=== PATIENT | male | born 1950 | race Caucasian/White ===

== ENCOUNTER → 2017-01-15 | Outpatient (CLI) | payer BC, OTHER ==
[~2017-01-15] MED LIST: ATOR10TA88 PO; BP MED; CLB/200 PO; DRV100 PO; HYDR-5688 PO; IBUP-1428 PO; PRLSR20 PO; TELM1TAB11 PO
== END | disposition home or self-care (01) ==
LOC: C.RDSM 12:04
PROVIDERS: ATTEND Orthopaedic Surgery Sports Medicine
DX: M79.645 Pain in left finger(s) (principal)

== ENCOUNTER → 2017-01-21 | Outpatient (CLI) | payer BC, OTHER ==
--- NOTE | 2017-01-21 11:15 | DIAGNOSTIC IMAGING REPORT ---
LUMBAR SPINE 5 VIEWS HISTORY: Pain M54.16 Lumbar [id number] COMPARISON: None. FINDINGS: There is no fracture. No subluxation. Moderate degenerative disc changes throughout. Mild degenerative sclerosis of the vertebral endplates. IMPRESSION: Moderate degenerative disc change. No acute process. Electronically signed by: Clive Engle M.D. 01/21/2017 11:13 AM Dictated Date/Time: 01/21/2017 11:12 AM
--- NOTE | 2017-01-21 11:16 | DIAGNOSTIC IMAGING REPORT ---
SI JOINTS 3 OR MORE VIEWS CLINICAL HISTORY: M46.1 [id number] COMPARISON STUDY: No previous studies for comparison. FINDINGS: No fractures are visualized. There is no evidence for SI joint fusion. There are no erosive changes to indicate an inflammatory sacroiliitis. Slight sclerosis involving the sacral aspect of the left SI joint is likely degenerative basis. IMPRESSION: Mild degenerative changes involving the left SI joint. No conventional radiographic evidence of an inflammatory sacroiliitis Electronically signed by: Andrea Varghese M.D. 01/21/2017 11:15 AM Dictated Date/Time: 01/21/2017 11:14 AM
== END | disposition home or self-care (01) ==
LOC: C.RAD1850 10:47
PROVIDERS: ATTEND Internal Medicine
DX: M46.1 Sacroiliitis, not elsewhere classified (principal); M54.16 Radiculopathy, lumbar region

== ENCOUNTER → 2017-01-31 | Outpatient (CLI) | payer BC, OTHER ==
[~2017-01-31] VITALS: Ht 173.4 cm; Wt 147.1 kg
[~2017-01-31] MED LIST changes: +ATOR10TA82 PO; -ATOR10TA88 PO
[2017-01-31 12:53] VITALS: BP 142/84; PULSE 85; Ht 173.4 cm; Wt 147.1 kg
== END | disposition home or self-care (01) ==
LOC: C.NEUR 12:31
PROVIDERS: ATTEND Internal Medicine Pulmonary Disease
DX: G47.30 Sleep apnea, unspecified (principal)

== ENCOUNTER → 2017-06-05 | Outpatient (CLI) | payer BC, OTHER ==
[~2017-06-05] MED LIST changes: -ATOR10TA82 PO; +ATOR10TA88 PO; -BP MED; -DRV100 PO
[2017-06-05 17:10] LABS: PROSTATE SPECIFIC ANTIGEN 1.11 ng/ml (0.000-4.000)
[2017-06-06 07:48] LABS: ESTIMATED AVERAGE GLUCOSE 105 mg/dl; HA1C FLAG Normal (Normal)
--- NOTE | 2017-07-07 13:07 | CODING QUERY MEDICAL NECESSITY ---
SUPPORTING DIAGNOSIS NEEDED Dr. Garcia, A supporting diagnosis is required for the test/procedure performed on this patient in order for us to be reimbursed by the patient's insurance. Please provide a supporting diagnosis for the following test/procedure listed below next to the test name along with your signature. *If there is no additional diagnosis for this patient that would support the following test/procedure please document that below next to the test/procedure. Test(s)/Procedure(s) that require a supporting diagnosis: * [id number] GLYCATED HEMOGLOBIN DIAGNOSIS: * [id number] PSA DIAGNOSIS: DATE OF SERVICE: 06/05/17 Provider Signature: Date: Thank you Zac Zavala [facility] Information Management Once completed, please kindly fax back to [phone] For questions please call [phone]
== END | disposition home or self-care (01) ==
LOC: C.LABBC 13:37
PROVIDERS: ATTEND Physician Assistant Medical
DX: R73.03 Prediabetes (principal); F52.8 Other sexual dysfunction not due to a substance or known physiological condition; Z11.59 Encounter for screening for other viral diseases; Z12.5 Encounter for screening for malignant neoplasm of prostate

== ENCOUNTER → 2017-07-01 | Outpatient (CLI) | payer BC, OTHER ==
--- NOTE | 2017-07-01 13:01 | DIAGNOSTIC IMAGING REPORT ---
MRI OF THE LUMBAR SPINE WITHOUT IV CONTRAST CLINICAL HISTORY: Lumbago. COMPARISON STUDY: No priors. TECHNIQUE: MRI of the lumbar spine is performed utilizing various T1 and T2-weighted sequences in the axial and sagittal planes. IV contrast was not administered for this examination. FINDINGS: Lumbar spine: Vertebral body height and alignment are maintained throughout the lumbar spine. Normal marrow signal intensity is preserved of the visualized bony structures. The transverse and spinous processes appear intact. There is no evidence of spondylolysis. Mild degenerative endplate edema is seen at L5-S1. Intervertebral discs: Degenerative disc desiccation is seen throughout the lumbar spine. The disc spaces are preserved. Spinal cord: The visualized spinal cord is normal in morphology and signal intensity. The conus medullaris terminates at the L1-L2 interspace. The nerve roots of the cauda equina are normal in morphology. L1-L2: Unremarkable. L2-L3: Unremarkable. L3-L4: Unremarkable. L4-L5: The central canal and neural foramina are widely patent. Mild facet arthropathy is of no consequence. L5-S1: There is a small disc herniation eccentric to the left with an inferiorly extruded fragment. The disc fragment measures up to 1.1 cm as seen on sagittal image 10 and impinges on the transiting left-sided S1 nerve root. The central canal is widely patent. Mild disc bulge causes bilateral subarticular stenosis. This may abut the exiting right L5 nerve root. Facet arthropathy causes mild bilateral neural foraminal stenosis. Soft tissues: The paraspinous soft tissues are within normal limits. The retroperitoneal structures are grossly unremarkable but incompletely assessed. Sacrum: The visualized sacrum is normal in morphology and signal intensity. IMPRESSION: 1. There is a small disc herniation eccentric to the left with an inferiorly extruded fragment. This impinges on the transiting left S1 nerve root. 2. There is no significant acquired compromise of the central canal. 3. There may be impingement on the exiting right L5 nerve root secondary to subarticular stenosis. 4. Mild degenerative endplate edema is noted at L5-S1. Dictated: 07/01/2017 11:52 AM Transcribed: 07/01/2017 12:34 PM Benito Electronically signed by: Torsten Steen M.D. 07/01/2017 12:45 PM Dictated Date/Time: 07/01/2017 11:52 AM
== END | disposition home or self-care (01) ==
LOC: C.MRIBC 10:59
PROVIDERS: ATTEND Physician Assistant
DX: M51.27 Other intervertebral disc displacement, lumbosacral region (principal)

== ENCOUNTER 2017-08-25 09:28 | Emergency (ER) | payer BC, OTHER ==
[~2017-08-25] VITALS: Ht 172.7 cm; Wt 132.4 kg
[~2017-08-25 09:28] MED LIST changes: +ATOR10TA82 PO; -ATOR10TA88 PO
[2017-08-25 09:36] VITALS: BP 145/81; TEMP 36.7; Ht 172.7 cm; Wt 132.4 kg
--- NOTE | 2017-08-25 10:53 | DIAGNOSTIC IMAGING REPORT ---
RIGHT HIP 2 VIEWS CLINICAL HISTORY: Fall with right hip pain. FINDINGS: AP and frog-leg views of the right hip are obtained. No prior studies are available for comparison at the time of dictation. The skeletal structures appear osteopenic. There is no radiographic evidence of fracture involving the right hip or the visualized right hemipelvis. Only mild degenerative change is seen in the right hip. The overlying soft tissues are within normal limits. IMPRESSION: There is no radiographic evidence of right hip fracture. Electronically signed by: Torsten Steen M.D. 08/25/2017 10:52 AM Dictated Date/Time: 08/25/2017 10:51 AM
--- NOTE | 2017-08-25 10:55 | DIAGNOSTIC IMAGING REPORT ---
L-SPINE MIN 4 VIEWS ROUTINE CLINICAL HISTORY: Back pain status post trauma COMPARISON STUDY: 01/21/2017 FINDINGS: There is a mildly osteopenic. There are mild multilevel degenerative changes. No acute fractures or traumatic subluxations are visualized. IMPRESSION: No fractures or subluxations identified. Electronically signed by: Andrea Varghese M.D. 08/25/2017 10:53 AM Dictated Date/Time: 08/25/2017 10:53 AM
[2017-08-25 11:36] VITALS: PULSE 71; O2SAT 94
--- NOTE | 2017-08-25 16:17 | EMERGENCY ROOM VISIT NOTE ---
ED Visit Note First contact with patient: 09:41 Chief Complaint: I fell this morning and hurt my back and hip. History of Present Illness: Mr. Jacobs is a 66-year-old white male who ambulates into the ED complaining of left sided lumbar back pain and right hip pain. Historically patient reports he has an L5-S1 disc herniation and he has been seeing pain management for steroid injections for sacroiliac joint inflammation. Patient reports that approximately 2 AM this morning, 7.5 hours ago, he accidentally rolled out of bed and landed on his right hip. He reports since that time he has been having left sided lumbar back pain in the area of the sacroiliac joint and right hip pain. He reports at the time of the fall he did not strike his head or have a loss of consciousness and since the fall he denies all signs of head injury. Patient does report he contacted his pain my judgment practitioner who encouraged him to come to the emergency department for evaluation and care. Currently he describes his right hip pain as a deep achy muscle pain. He rates this discomfort 4/10. The pain is nonradiating. The pain worsens with palpation of the gluteal muscles and sitting down. He has not identified any alleviating factors related to the pain. He has not taken a medication for pain prior to arrival at the hospital. He describes his left sided lumbar back pain as a deep sharp sensation. He rates this discomfort 8/10. His pain is radiating into his left buttock. His pain worsens with all movement of the back and palpation of the buttock. He has not identified any alleviating factors related to the pain. He has not taken medications for pain prior to arrival at the hospital. He denies cervical or thoracic lumbar back pain, abdominal pain, nausea, vomiting, diarrhea, constipation, rectal bleeding, black/tarry stools, urinary symptoms, hematuria, bowel and bladder dysfunction, rectal/genital paresthesias , lower extremity weakness/numbness/tingling. Review of Systems: As noted above in history of present illness. 8 body systems were reviewed and found to be negative as noted above. Past Medical History: As previously noted, hypertension, status post carpal tunnel release, bilateral knee arthroscope's and bilateral unspecified ankle surgery. Current Medications: Motrin, Celebrex, telmisartan-hydrochlorothiazide, Lipitor , Prilosec and Carmel. Allergies to Medications: Patient denies. Social History: Patient is not currently employed; he lives with his and feels safe in his home environment; he denies tobacco and alcohol use. Physical Examination: Vital Signs: Date Time Temp Pulse Resp B/P (MAP) Pulse Ox O2 Delivery O2 Flow Rate FiO2 08/25/17 11:36 71 16 94 08/25/17 09:36 36.7 70 18 145/81 96 Room Air GENERAL:66-year-old male in mild to moderate distress due to pain, nontoxic- appearing, afebrile and hemodynamically stable. NEUROLOGICAL: Awake, alert and oriented to person, place and time. Answering questions appropriately and following commands. Normal gait. Good hand eye coordination. SKIN: Warm, dry and pink. No soft tissue eruptions or trauma noted. HEENT: Atraumatic and normocephalic. BACK: No tenderness over the bony cervical and thoracic spine. Moderate tenderness in the left sacroiliac joint area and minimal tenderness in the L5- S1 area. I do not appreciate any bony deformity, bony crepitus, swelling or ecchymosis. There is no tenderness throughout the paraspinous muscles. Decreased range of motion in all movements at the waist due to pain. Negative straight leg raise test. No CVA tenderness. THORAX: Lungs sounds are clear to auscultation and equal bilaterally with symmetrical chest wall. ABDOMEN: Obese, soft and nontender. Positive bowel sounds in all quadrants. No guarding, rigidity or organomegaly. EXTREMITIES: Moves all extremities well on command and with purpose. All distal neurovascular statuses are intact and equal bilaterally. 2+ patellar and Achilles tendon reflexes intact and equal bilaterally. 4/5 muscle strength in flexion, extension, abduction, abduction, internal and external rotation of the hips, flexion and extension of the knees and plantar flexion and dorsiflexion of the hips. He was able to distinguish light sensations through all dermatomes. Mild bilateral dependent edema. No calf tenderness or cords. ED Course: Patient is assessed as noted above. Patient's medication list was reviewed. Patient was offered pain medication and refused. Right Hip X-Rays: Were read by myself and the radiologist showing no acute fractures or dislocations; radiologist notes mild degenerative changes within the right hip. Lumbar Spine X-Rays: Were read by myself and the radiologist and shows no acute fractures or subluxations. Mild osteopenia and mild multilevel degenerative changes. Once again patient was offered pain medication and refused. Patient was educated about today's findings and instructed on his treatment plan ; he verbalized understanding and agreement with this plan. Clinical Impression: Fall. Right hip pain. Left sacroiliac joint pain. Disposition: Patient discharged home in stable condition; prior to departure he was reassessed and subjectively reported he was feeling the same. Plan: Patient was encouraged to continue his current medications as prescribed. Patient was encouraged to take one or 2 tablets of his Carmel prescription every 6 hours as needed for pain. Patient was encouraged to follow-up with the [facility] for definitive care and treatment. Patient was encouraged return ED for worsening pain, fevers, rectal/genital paresthesias, bowel and bladder dysfunction, lower show me weakness/numbness/ tingling or any new/concerning symptoms.
== END 2017-08-25 11:37 | disposition home or self-care (01) ==
LOC: C.EDB 09:30
DX: S39.92XA Unspecified injury of lower back, initial encounter (principal); M53.3 Sacrococcygeal disorders, not elsewhere classified; M54.5 Low back pain; M25.551 Pain in right hip; W06.XXXA Fall from bed, initial encounter; Y92.092 Bedroom in other non-institutional residence as the place of occurrence of the external cause

== ENCOUNTER → 2018-01-20 | Outpatient (CLI) | payer BC, OTHER ==
[2018-01-20 13:11] LABS: BASO % 0.7 %; BASO ABS # 0.06 K/uL (0-0.2); EOS % 7.5 %; EOS ABS # 0.64 K/uL (0-0.5); HEMATOCRIT 44.9 % (42-52); HEMOGLOBIN 15.7 g/dL (14.0-18.0); IG# 0.03 K/uL (0.00-0.02); LYMPH % 21.3 %; LYMPH ABS # 1.83 K/uL (1.2-3.4); MEAN CELL VOLUME 97.6 fL (80-100); MEAN CORPUSCULAR HEMOGLOBIN 34.1 pg (25-34); MEAN PLATELET VOLUME 10.5 fL (7.4-10.4); MONO % 7.2 %; MONO ABS # 0.62 K/uL (0.11-0.59); PLATELET COUNT 269 K/uL (130-400); RED CELL DISTRIBUTION WIDTH CV 12.3 % (11.5-14.5); RED CELL DISTRIBUTION WIDTH SD 43.2 fL (36.4-46.3); WHITE BLOOD COUNT 8.58 K/uL (4.8-10.8)
[2018-01-20 17:06] LABS: ALBUMIN 3.5 gm/dl (3.4-5.0); ALT/SGPT 31 U/L (12-78); AST/SGOT 16 U/L (15-37); BLOOD UREA NITROGEN 14 mg/dl (7-18); CARBON DIOXIDE 28 mmol/L (21-32); CREATININE 0.85 mg/dl (0.60-1.40); GLUCOSE 112 mg/dl (70-99); POTASSIUM 4.2 mmol/L (3.5-5.1); SODIUM 135 mmol/L (136-145)
[2018-01-20 17:09] LABS: ALKALINE PHOSPHATASE 126 U/L (45-117); CHOLESTEROL 117 mg/dl (0-200); LDL CHOLESTEROL CALCULATED 47 mg/dl; TOTAL PROTEIN 7.2 gm/dl (6.4-8.2)
[2018-01-21 06:35] LABS: HEMOGLOBIN A1C 5.9 % (4.5-5.6)
== END | disposition home or self-care (01) ==
LOC: C.LABPBG 11:02
PROVIDERS: ATTEND Internal Medicine
DX: E78.5 Hyperlipidemia, unspecified (principal); R73.03 Prediabetes

== ENCOUNTER → 2018-01-26 | Outpatient (CLI) | payer BC, OTHER ==
--- NOTE | 2018-01-26 11:14 | DIAGNOSTIC IMAGING REPORT ---
CHEST 2 VIEWS ROUTINE CLINICAL HISTORY: 67 years-old Male presenting with G47.30 Sleep [id number] Cough. TECHNIQUE: PA and lateral views of the chest were obtained. COMPARISON: 08/13/2012. FINDINGS: Atherosclerosis of aortic arch. Cardiac silhouette enlarged, unchanged. Lungs and pleural spaces clear. Osseous structures normal. IMPRESSION: 1. Cardiomegaly. Otherwise no acute cardiopulmonary disease. Electronically signed by: Fredis Saenz M.D. 01/26/2018 11:13 AM Dictated Date/Time: 01/26/2018 11:12 AM
== END | disposition home or self-care (01) ==
LOC: C.RAD1850 10:40
PROVIDERS: ATTEND Internal Medicine
DX: G47.30 Sleep apnea, unspecified (principal); R05 Cough; I51.7 Cardiomegaly

== ENCOUNTER → 2018-01-26 | Outpatient (CLI) | payer BC, OTHER | END | disposition home or self-care (01) | LOC: C.LABBFT 10:07 | PROVIDERS: ATTEND Internal Medicine | DX: R21 Rash and other nonspecific skin eruption (principal); R05 Cough ==

== ENCOUNTER → 2018-01-30 | Outpatient (CLI) | payer BC, OTHER ==
[~2018-01-30] VITALS: Ht 172.7 cm; Wt 144.3 kg
[2018-01-30 13:02] VITALS: BP 144/74; PULSE 84; Ht 172.7 cm; Wt 144.3 kg
== END | disposition home or self-care (01) ==
LOC: C.NEUR 12:34
PROVIDERS: ATTEND Internal Medicine Pulmonary Disease
DX: G47.30 Sleep apnea, unspecified (principal); R05 Cough; E66.01 Morbid (severe) obesity due to excess calories

== ENCOUNTER → 2018-03-03 | Outpatient (CLI) | payer BC, OTHER ==
[~2018-03-03] MED LIST changes: +OPTIRAY 320 IV PRN
--- NOTE | 2018-03-03 12:44 | DIAGNOSTIC IMAGING REPORT ---
CT (CHEST) THORAX WITH CLINICAL HISTORY: 67 years-old Male presenting with R05 Cough, chronic cough. TECHNIQUE: Multidetector CT imaging of the chest was performed after the administration of intravenous contrast. IV contrast: 93 mL of Optiray 320. A dose lowering technique was used consistent with the principles of ALARA (as low as reasonably achievable). COMPARISON: Chest x-ray from 01/26/2018. CT DOSE (mGy.cm): The estimated cumulative dose is 1133.79 mGy.cm. FINDINGS: Pest Control Service Technician topogram: Unremarkable. On soft tissue windows, normal thyroid and thoracic inlet. No axillary, supraclavicular, hilar, or mediastinal lymphadenopathy. Atherosclerosis of the aorta. Normal heart size. Coronary artery calcification. No pericardial or pleural effusion. Hepatic steatosis. On lung windows, no focal infiltrate or nodule. Airways patent. On bone windows, degenerative changes of the spine. Old bilateral rib fractures evident. IMPRESSION: 1. No acute intrathoracic pathology. 2. Hepatic steatosis. Electronically signed by: Fredis Saenz M.D. 03/03/2018 12:42 PM Dictated Date/Time: 03/03/2018 12:39 PM
== END | disposition home or self-care (01) ==
LOC: C.CTS 11:35
PROVIDERS: ATTEND Internal Medicine
DX: R05 Cough (principal); K76.0 Fatty (change of) liver, not elsewhere classified